=== PATIENT | male | born 1970 | race Caucasian/White ===

== ENCOUNTER 2018-09-20 11:24 | Day surgery (SDC) | payer OTHER ==
[2018-09-19 18:15] VITALS: BMI 33.0
[~2018-09-20 11:24] MED LIST: LACTATED RINGERS SOLUTION 1,000 ML IV SCH; ONDANSETRON 4 MG/2 ML VIAL IVPUSH PRN; oxyCODONE HCL 5 MG TABLET PO PRN
[2018-09-20] MEDS ORDERED: MIDAZOLAM HCL 2 MG/2 ML SINGLE DOSE VIAL ONE (12:38)
[2018-09-20] MEDS ORDERED: DEXAMETHASONE SOD PHOSPHATE 4 MG/1 ML VIAL ONE (13:13)
[2018-09-20] MEDS ORDERED: PROPOFOL 20 ML ONE ×2 (13:14)
[2018-09-20] MEDS ORDERED: LIDOCAINE HCL/PF 2% SDV 5ML VIAL ONE (13:15)
[2018-09-20] MEDS ORDERED: LIDOCAINE 1%/EPI 1:100000 (20 ML MULTI DOSE VIAL) ONE (13:16)
[2018-09-20] MEDS ORDERED: SUCCINYLCHOLINE CHLORIDE 200 MG/10 ML VIAL ONE (13:17)
[2018-09-20] MEDS ORDERED: LIDOCAINE 1%/EPI 1:100000 (20 ML MULTI DOSE VIAL) IJ ONE (13:19)
[2018-09-20] MEDS ORDERED: ePHEDrine SULFATE 50 MG/1 ML AMPULE ONE (13:38)
[2018-09-20] MEDS ORDERED: KETOROLAC TROMETHAMINE 30 MG/1 ML VIAL ONE (13:49)
[2018-09-20] MEDS ORDERED: BUPIVACAINE HCL/PF (5 MG/ML) 30 ML VIAL IJ ONE (13:50)
[2018-09-20] MEDS ORDERED: BENZOIN TINCTURE SWABSTICK TP ONE (13:52)
[2018-09-20] MEDS ORDERED: oxyCODONE HCL 5 MG TABLET ONE (15:34)
[2018-09-20 16:51] VITALS: BP 148/83; PULSE 90; TEMP 97.5
--- NOTE | 2018-10-16 17:04 | OP ---
DATE OF OPERATION: PREOPERATIVE DIAGNOSIS: Stress fracture to left cuboid and lateral cuneiform. POSTOPERATIVE DIAGNOSIS: Stress fracture to left cuboid and lateral cuneiform. PROCEDURE: Injection of AccuFill into cuboid and cuneiform. SURGEON: Leroy Martínez DPM No ankle tourniquet was utilized. DESCRIPTION OF PROCEDURE: The patient was prepped and draped in the usual manner and sent to the OR in stable condition. Upon achieving complete anesthesia, an incision was made thereby exposing the cuboid and another incision was made thereby exposing the lateral cuneiform, and this was confirmed under intraoperative fluoroscopy. At this time, the AccuFill injection was then placed within the bone, preceded by insertion of a trocar for access to the cancellous bone. At this time 0.85 mL of AccuFill was injected into the cuboid, and this was kept in place for 6 minutes while the material hardened and coalesced completely. Once done, attention was then directed to the lateral cuneiform, where another trocar was then placed within the central aspect of the bone and, again, this was confirmed with intraoperative fluoroscopy. Then 0.8 mL of AccuFill was injected into the bone, and another 6 minutes passed while the bone hardened and coalesced. At this time both trocars were removed from each respective site. The wound was then flushed out with water which was sterile, and each incision was closed with 4-0 nylon suture. Postop injectable of 8 mL of Marcaine plain 0.25%, followed by application of a dry sterile compressive dressing. The patient will be seen in 10 days for initial postop visit. LEROY MARTÍNEZ DPM /[id number]
== END 2018-09-20 16:51 | disposition home or self-care (01) ==
LOC: JASU-SURG 11:24
PROVIDERS: ATTEND Podiatrist Foot Surgery
PROC: 0QSM0ZZ Reposition Left Tarsal, Open Approach (ICD-10-PCS; 2018-09-20)
PROC: 0QSM0ZZ Reposition Left Tarsal, Open Approach (ICD-10-PCS; principal; 2018-09-20 13:00)
DX: M84.375A Stress fracture, left foot, initial encounter for fracture (principal); X58.XXXA Exposure to other specified factors, initial encounter; Y93.66 Activity, soccer; Y92.322 Soccer field as the place of occurrence of the external cause
CPT/HCPCS: 94760